=== PATIENT | male | born 1970 | race Caucasian/White ===

== ENCOUNTER 2018-07-18 16:58 | Emergency (ER) | payer OTHER ==
[2018-07-18 17:10] VITALS: BP 130/82; PULSE 81; TEMP 98; BMI 29.1
[2018-07-18] MEDS ORDERED: KETOROLAC TROMETHAMINE 30 MG/1 ML VIAL IVPUSH ONE (17:23)
[2018-07-18] MEDS ORDERED: KETOROLAC TROMETHAMINE 30 MG/1 ML VIAL ONE (17:29)
[2018-07-18] MEDS ORDERED: SODIUM CHLORIDE 1,000 ML IV STA (17:34)
--- NOTE | 2018-07-18 17:34 | PDOC ---
History of Present Illness - General Chief Complaint: Back Pain Stated Complaint: BACK PAIN Time Seen by Provider: 07/18/18 17:17 History Source: Patient Exam Limitations: No Limitations - History of Present Illness Travel History: No Initial Comments: 07/18/18 17:26 47 yr male with c/o 2 days right sided flank pain getting worse radiates to right lower abdomen. Pt has history of same symptoms in the past unsure if kidney stone, s/p appendectomy 2013. no fever no vomiting no diarrhea. 07/18/18 17:43 Past History - Past Medical History Allergies/Adverse Reactions: Allergies Allergy/AdvReac Type Severity Reaction Status Date / Time No Known Allergies Allergy Verified 07/18/18 17:08 Home Medications: Ambulatory Orders Ketorolac Tromethamine [Toradol] 10 mg PO TID PRN #15 tablet 07/18/18 Tamsulosin HCl [Flomax] 0.4 mg PO HS #7 capsule 07/18/18 Anemia: No Asthma: No Cancer: No Cardiac Disorders: No CVA: No COPD: No CHF: No Dementia: No GI Disorders: Yes (GASTRITIS) Disorders: No HTN: No Hypercholesterolemia: No Liver Disease: No Seizures: No Thyroid Disease: No - Surgical History Abdominal Surgery: No Appendectomy: Yes Cardiac Surgery: No Cholecystectomy: No Lung Surgery: No Neurologic Surgery: No Orthopedic Surgery: No - Suicide/Smoking/Psychosocial Hx Smoking History: Never smoked Have you smoked in the past 12 months: No Information on smoking cessation initiated: No Hx Alcohol Use: No Drug/Substance Use Hx: No Substance Use Type: None Hx Substance Use Treatment: No Abd/GI Specific PMHX - Complaint Specific PMHX Colitis: No Diverticulitis: No Gall Bladder Disease: No GERD: No Review of Systems - Review of Systems Able to Perform ROS?: Yes Is the patient limited Georgian proficient: No Constitutional: No: Symptoms Reported HEENTM: No: Symptoms Reported Respiratory: No: Symptoms reported Cardiac (ROS): No: Symptoms Reported ABD/GI: Yes: Symptoms Reported : Yes: Symptoms Reported, Flank Pain (right) *Physical Exam - Vital Signs Last Vital Signs Temp Pulse Resp BP Pulse Ox 98 F 81 16 130/82 100 07/18/18 17:03 07/18/18 17:03 07/18/18 17:03 07/18/18 17:03 07/18/18 17:03 - Physical Exam General Appearance: Yes: Nourished, Appropriately Dressed, Moderate Distress ( pacing, appears uncomfortable ) HEENT: positive: EOMI, ANITA, Normal ENT Inspection, TMs Normal, Pharynx Normal Neck: positive: Supple. negative: Tender Respiratory/Chest: positive: Lungs Clear, Normal Breath Sounds. negative: Chest Tender Cardiovascular: positive: Regular Rhythm, Regular Rate Gastrointestinal/Abdominal: positive: Normal Bowel Sounds, Soft. 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 *DC/Admit/Observation/Transfer Diagnosis at time of Disposition: Flank pain, acute Hematuria Qualifiers: Hematuria type: unspecified type Qualified Code(s): R31.9 - Hematuria, unspecified - Discharge Dispostion Disposition: HOME Condition at time of disposition: Improved - Prescriptions Prescriptions: Ketorolac Tromethamine [Toradol] 10 mg PO TID PRN #15 tablet PRN Reason: Pain Tamsulosin HCl [Flomax] 0.4 mg PO HS #7 capsule - Referrals Referrals: Lalo Membreno PA [Primary Care Provider] - Miguel Monroy MD., [Staff Physician] - - Patient Instructions Additional Instructions: please drink 2 liters of wate a day avoid alcohol, iced tea, soda take the medication as needed for pain , take the flomax at bedtime for the next 2 days please call the urologist for follow up for next week Return to ER for any worsening symptoms - Post Discharge Activity
[2018-07-18 17:46] LABS: BASO % 0.4 % (0-2.0); EOS % 4.5 % (0-4.5); HEMATOCRIT 44.8 % (35.4-49); HEMOGLOBIN 15.8 GM/dL (11.7-16.9); LYMPH % 29.6 % (8-40); MCH 30.6 pg (25.7-33.7); MCHC 35.2 g/dl (32.0-35.9); MEAN CELL VOLUME 86.8 fl (80-96); MEAN PLT VOLUME 8.1 fl (7.5-11.1); NEUT % 56.5 % (42.8-82.8); PLATELET COUNT 323 K/MM3 (134-434); RBC 5.16 M/mm3 (4.00-5.60); RDW 13.5 % (11.9-15.9); WHITE BLOOD COUNT 9.9 K/mm3 (4.0-10.0)
[2018-07-18 18:17] LABS: ALBUMIN 3.7 g/dl (3.4-5.0); ALK PHOS 110 U/L (45-117); ANION GAP 7 MMOL/L (8-16); BILIRUBIN,TOTAL 0.7 mg/dL (0.2-1); BLOOD UREA NITROGEN 10 mg/dL (7-18); CALCIUM 8.7 mg/dL (8.5-10.1); CHLORIDE 104 mmol/L (98-107); CO2 29 mmol/L (21-32); CREATININE 1.1 mg/dL (0.55-1.3); GLUCOSE,RANDOM 113 mg/dL (74-106); POTASSIUM 4.4 mmol/L (3.5-5.1); SGOT/AST 27 U/L (15-37); SGPT/ALT 46 U/L (13-61); SODIUM 140 mmol/L (136-145); TOT PROT 7.9 g/dl (6.4-8.2)
[2018-07-18 18:25] LABS: URINE APPEARANCE CLEAR; URINE BILIRUBIN NEGATIVE (<2.0 mg/dL); URINE COLOR LTYELLOW; URINE GLUCOSE (UA) NEGATIVE (NEGATIVE); URINE KETONE NEGATIVE (NEGATIVE); URINE LEUK ESTERASE NEGATIVE (NEGATIVE); URINE NITRITE NEGATIVE (NEGATIVE); URINE PROTEIN NEGATIVE (NEGATIVE); URINE UROBILINOGEN NEGATIVE mg/dL (0.2-1.0)
[2018-07-18 18:30] LABS: URINE MUCUS RARE
== END 2018-07-18 20:45 | disposition home or self-care (01) ==
LOC: JERFT 16:58
PROC: 3E0337Z Introduction of Electrolytic and Water Balance Substance into Peripheral Vein, Percutaneous Approach (ICD-10-PCS; principal; 2018-07-18)
PROC: 3E0333Z Introduction of Anti-inflammatory into Peripheral Vein, Percutaneous Approach (ICD-10-PCS; 2018-07-18)
DX: R10.31 Right lower quadrant pain (principal); R31.9 Hematuria, unspecified
CPT/HCPCS: 36415; 74176; 80053; 81003; 81015; 85025; 99281-25; J7030